=== PATIENT | male | born 1980 | race Caucasian/White ===

== ENCOUNTER 2023-01-25 13:57 | Outpatient (CLI) | payer OTHER, SELFPAY ==
--- NOTE | 2023-01-30 15:20 | WPDHOLTEREM ---
Holter/Event Monitor Holter/Event Monitor Date of procedure: 01/25/23 Holter/Event Procedure: 48 Hr Holter Monitor Indications: Palpitations Conclusion: 1. 48 hour holter monitor on 01/25/23. 2. Underlying rhythm is sinus rhythm. HR range 49-194 bpm; average HR 83 bpm. HR at 194 bpm was at 07:21 which is either sinus or atrial tachycardia with baseline artifact. 3. There are 15 premature supraventricular complexes. No supraventricular tachycardia. 4. There are 3 premature ventricular complexes. No ventricular tachycardia. 5. No sinoatrial or atrioventricular blocks. No significant pauses greater than 2 seconds. 6. No symptoms available for correlation.
== END 2023-01-25 13:58 | disposition home or self-care (01) ==
PROVIDERS: PCP Internal Medicine; Visit Provider Internal Medicine
DX: R00.2 Palpitations (principal)
CPT/HCPCS: 93225; 93226

== ENCOUNTER 2024-09-15 07:00 | Outpatient (NON) | payer OTHER, SELFPAY | END 2024-09-15 07:01 | disposition home or self-care (01) | PROVIDERS: PCP Nurse Practitioner; Visit Provider Internal Medicine Gastroenterology | DX: Z12.11 Encounter for screening for malignant neoplasm of colon (principal) | CPT/HCPCS: 88305 ==